=== PATIENT | female | born 1960 | race Caucasian/White ===

== ENCOUNTER 2017-07-22 14:38 | Emergency (ER) | payer BC ==
[2017-07-22 15:15] VITALS: BP 145/89; PULSE 75; RESP 16; TEMP 98.1; O2SAT 97
[2017-07-22] MEDS ORDERED: LIDOCAINE HCL 1% 50 MG/5 ML SOL INJ ONE (15:25)
[2017-07-22] MEDS ORDERED: APAP/OXYCODONE 325/5 TAB PO ONE (15:26)
[2017-07-22] MEDS ORDERED: APAP/OXYCODONE 325/5 TAB ONE (15:35)
[2017-07-22] MEDS ORDERED: AMOXIL/CLAVULANATE 875/125 TAB PO SCH (15:45)
[2017-07-22] MEDS ORDERED: LIDOCAINE HCL 1% MPF SOL ONE (15:47)
[2017-07-22 16:07] LABS: CALCIUM 8.4 mg/dl (8.5-10.1); POTASSIUM 4.4 mMol/L (3.5-5.1)
[2017-07-22] MEDS ORDERED: TDAP VACCINE 0.5 ML SUS IM ONE ×2 (16:10→16:11)
== END 2017-07-22 16:54 | disposition home or self-care (01) ==
LOC: ED 14:38
DX: S51.851A Open bite of right forearm, initial encounter (principal); W54.0XXA Bitten by dog, initial encounter
CPT/HCPCS: 73090; 80048; 90715; 99285; J2001